=== PATIENT | female | born 1995 | race African-American/Black ===

== ENCOUNTER 2016-09-28 19:18 | Emergency (ER) | payer BC ==
[~2016-09-28] VITALS: Ht 165.1 cm; Wt 59.1 kg
[2016-09-28 19:27] VITALS: BP 151/83; TEMP 98.3
[2016-09-28 20:24] LABS: PH 7 (5-8); URINE APPEARANCE Clear; URINE BILIRUBIN Negative (NEGATIVE); URINE BLOOD Negative (NEGATIVE); URINE COLOR Yellow; URINE GLUCOSE Negative (NEGATIVE); URINE KETONE Negative (NEGATIVE); URINE UROBILINOGEN Negative (NEGATIVE)
[2016-09-28 21:10] LABS: BASO % 0.5 % (0.0-2.0); EOS % 0.5 % (0-4.0); GRAN # 5.2 (1.4-6.5); GRAN % 66.2 % (42.2-75.2); HEMATOCRIT 39.5 % (35.0-45.0); HEMOGLOBIN 12.8 g/dl (12.0-15.0); LYMPH # 2.1 (1.2-3.4); LYMPH % 26.9 % (20.0-51.0); MEAN CELL VOLUME 84 fl (80.0-95.0); MEAN CORPUSCULAR HEMOGLOBIN 27 pg (26.0-32.0); MEAN CORPUSCULAR HGB CONC 32 g/dl (33.0-37.0); MEAN PLATELET VOLUME 9.8 fl (7.4-10.4); MONO # 0.5 (0.1-0.6); MONO % 5.9 % (1.7-9.3); PLATELET COUNT 287 K/mm3 (130-400); RED BLOOD COUNT 4.72 M/mm3 (4.10-5.30); REDCELL DISTRIBUTION WIDTH-CV 12.8 % (11.5-14.5); WHITE BLOOD COUNT 7.8 K/mm3 (4.8-10.8)
[2016-09-28 21:20] LABS: ADJUSTED CALCIUM 9.1 mg/dL (8.4-10.2); ALBUMIN 4.6 gm/dL (3.5-5.0); BILIRUBIN,TOTAL 0.6 mg/dL (0.0-1.0); CALCIUM 9.6 mg/dL (8.4-10.2); CREATININE, serum 0.82 mg/dL (0.52-1.25); TOTAL PROTEIN 7.8 gm/dL (6.4-8.2)
[2016-09-28 21:53] VITALS: PULSE 77
== END 2016-09-28 21:54 | disposition home or self-care (01) ==
LOC: COL.ER 19:18
PROVIDERS: Physician Assistant Medical
DX: R10.33 Periumbilical pain (principal)